=== PATIENT | female | born 1995 | race Caucasian/White ===

== ENCOUNTER 2016-07-07 07:08 | Emergency (ER) | payer BC, OTHER ==
[~2016-07-07] VITALS: Ht 180.3 cm; Wt 99.8 kg
[2016-07-07 07:12] VITALS: BP 139/80
--- NOTE | 2016-07-07 07:29 | PHYS DOC ---
Adult General Chief Complaint Chief Complaint: COUGH HPI HPI Patient is a 20 year old female with no significant medical history who presents with a dry cough for the last 1 month. Patient states she also had a fever yesterday. She states she is an occasional smoker. Review of Systems Review of Systems Constitutional: fever Eyes: Denies change in visual acuity, redness, or eye pain [] HENT: Denies nasal congestion or sore throat [] Respiratory: cough Cardiovascular: No additional information not addressed in HPI [] GI: Denies abdominal pain, nausea, vomiting, bloody stools or diarrhea [] : Denies dysuria or hematuria [] Musculoskeletal: Denies back pain or joint pain [] Integument: Denies rash or skin lesions [] Neurologic: Denies headache, focal weakness or sensory changes [] Endocrine: Denies polyuria or polydipsia [] Current Medications Current Medications Current Medications Medications (Trade) Dose Ordered Sig/Letty Start Time Stop Time Status Last Admin Dose Admin Albuterol/ Ipratropium (Duoneb) 3 ml 1X ONCE 07/07/16 07:30 07/07/16 07:31 DC 07/07/16 07:35 3 ML Benzonatate (Tessalon Perle) 200 mg 1X ONCE 07/07/16 07:30 07/07/16 07:31 DC 07/07/16 07:46 200 MG Prednisone (Prednisone) 60 mg 1X ONCE 07/07/16 07:30 07/07/16 07:31 DC 07/07/16 07:46 60 MG Allergies Allergies Allergies Coded Allergies Type Severity Reaction Last Updated Verified Penicillins Allergy Intermediate hives 07/07/16 Yes Physical Exam Physical Exam Constitutional: Well developed, well nourished, no acute distress, non-toxic appearance. [] HENT: Normocephalic, atraumatic, bilateral external ears normal, oropharynx moist, no oral exudates, nose normal. [] Eyes: PERRLA, EOMI, conjunctiva normal, no discharge. [] Neck: Normal range of motion, no tenderness, supple, no stridor. [] Cardiovascular:Heart rate regular rhythm, no murmur [] Lungs & Thorax: Bilateral breath sounds clear to auscultation [] Abdomen: Bowel sounds normal, soft, no tenderness, no masses, no pulsatile masses. [] Skin: Warm, dry, no erythema, no rash. [] Back: No tenderness, no CVA tenderness. [] Extremities: No tenderness, no cyanosis, no clubbing, ROM intact, no edema. [] Neurologic: Alert and oriented X 3, normal motor function, normal sensory function, no focal deficits noted. [] Psychologic: Affect normal, judgement normal, mood normal. [] Current Patient Data Vital Signs Vital Signs Date Time Temp Pulse Resp B/P Pulse Ox O2 Delivery O2 Flow Rate FiO2 07/07/16 07:35 Room Air 07/07/16 07:12 97.6 68 14 98 97.6 EKG EKG [] Radiology/Procedures Radiology/Procedures [] Course & Med Decision Making Course & Med Decision Making Pertinent Labs and Imaging studies reviewed. (See chart for details) Patient is in the ED with a dry cough for 1 month. Patient does work in the hospital. She was given a DuoNeb treatment, prednisone and Tessalon Perles in the Ed. Chest x-ray interpreted by Dr. Davidson is negative for any acute findings. Patient was treated for bronchitis. She was discharged with doxycycline, prednisone for 4 more days, albuterol breathing treatments, Tessalon Perles, and codeine with promethazine. She is to follow-up with her own PCP in the next 7 days. We did talk about complete smoking cessation. Dragon Disclaimer Dragon Disclaimer This electronic medical record was generated, in whole or in part, using a voice recognition dictation system. Departure Departure Impression: Primary Impression: Acute bronchitis Additional Impression: Smoking addiction Disposition: 01 HOME, SELF-CARE Condition: STABLE Referrals: GUY BUSTILLOS MD (PCP) Follow-up with your own doctor in the next 7-14 days Patient Instructions: Acute Bronchitis Additional Instructions: You were seen for acute bronchitis. Please complete your antibiotics. Take the prescribed medicines as ordered. Follow-up with your own doctor in 1-2 weeks. Come back to the emergency room if symptoms worsen. Consider complete smoking cessation. Scripts Promethazine Hcl/Codeine (Promethazine-Codeine Syrup)118 Ml Syrup5 Ml PO Q4- 6HRS #120 ML Prov:MUTUNGA,MELIDA [employer] 07/07/16 Albuterol Sulfate (Proair Respiclick)90 Mcg Aer.pow.ba1 Puff IH PRN Q6HRS PRN SHORTNESS OF BREATH #1 INHALER Prov:MELIDA ANDRES APRN 07/07/16 Benzonatate (Tessalon Perle)100 Mg Capsule1 Cap PO TID #30 CAP Prov:MELIDA ANDRES APRN 07/07/16 Prednisone 50 Mg Tablet1 Tab PO DAILY #4 TAB Prov:MELIDA ANDRES APRN 07/07/16 Doxycycline Hyclate 100 Mg Tablet1 Tab PO BID #14 TAB Prov:MELIDA ANDRES APRN 07/07/16 Problem Qualifiers Primary Impression: Acute bronchitis Bronchitis organism: unspecified organism Qualified Code: J20.9 - Acute bronchitis, unspecified YOVANNYFUADMELIDA DODGE Jul 07, 2016 07:29
[2016-07-07] MEDS ORDERED: BENZONATATE 100 MG CAPSULE. PO ONE (07:30)
[2016-07-07] MEDS ORDERED: IPRATRPIUM/ALBUTEROL 0.5/2.5MG 3 ML NEBU. NEB ONE (07:30)
[2016-07-07] MEDS ORDERED: PREDNISONE 20 MG TABLET PO ONE (07:30)
[2016-07-07] MEDS ORDERED: PRED50TA PO (08:23)
[2016-07-07] MEDS ORDERED: BENZ100C PO (08:23)
[2016-07-07] MEDS ORDERED: PROAIR RESPICL90 MCG IH (08:23)
[2016-07-07] MEDS ORDERED: PROM118S2 PO (08:23)
[2016-07-07] MEDS ORDERED: DOXY100T PO (08:23)
--- NOTE | 2016-07-07 08:25 | RAD ---
2 view CXR: Clinical indications: Cough for one month which is now productive. Findings: No acute lung infiltrate or pleural effusion or pulmonary edema or lung mass or pneumothorax is seen. The heart size, pulmonary vasculature, mediastinum and both odalys are unremarkable. The osseous structures appear intact. Impression: No acute radiographic abnormality is seen.
== END 2016-07-07 08:34 | disposition home or self-care (01) ==
LOC: ER 07:08
DX: J20.9 Acute bronchitis, unspecified (principal); F17.200 Nicotine dependence, unspecified, uncomplicated; Z88.0 Allergy status to penicillin
CPT/HCPCS: 71020; 94250; 94640; 99284; J7512; J7620

== ENCOUNTER 2016-09-01 21:42 | Emergency (ER) | payer BC, OTHER ==
[~2016-09-01] VITALS: Ht 180.3 cm; Wt 99.8 kg
[~2016-09-01 21:42] MED LIST: BENZ100C PO; DOXY100T PO; PRED50TA PO; PROAIR RESPICL90 MCG IH; PROM118S2 PO
[2016-09-01 22:03] VITALS: BP 137/73
[2016-09-01] MEDS ORDERED: CEPH-264 PO (22:17)
--- NOTE | 2016-09-01 22:17 | PHYS DOC ---
Past Medical History Past Medical History: No Pertinent History Past Surgical History: Tonsillectomy Additional Information: nonsmoker Alcohol Use: Occasionally Drug Use: None Adult General Chief Complaint Chief Complaint: SORE THROAT HPI HPI Patient is a 20 year old female who presents with sore throat starting today. She has had nasal congestion and nonproductive cough. She denies fever, ear pain , shortness of breath, nausea, or vomiting. Her roommate recently had strep throat. The patient does not have a PCP. Review of Systems Review of Systems Constitutional: Denies fever or chills. [] Eyes: Denies change in visual acuity, redness, or eye pain. [] HENT: Denies ear pain. Reports sore throat and nasal congestion. Respiratory: Denies shortness of breath. Reports cough. Cardiovascular: Denies chest pain, palpitations or edema. [] GI: Denies abdominal pain, nausea, vomiting, bloody stools or diarrhea. [] Musculoskeletal: Denies back pain or joint pain. [] Integument: Denies rash or skin lesions. [] Neurologic: Denies headache, focal weakness or sensory changes. [] All systems reviewed and negative unless otherwise stated in the HPI. Allergies Allergies Allergies Coded Allergies Type Severity Reaction Last Updated Verified Penicillins Allergy Intermediate hives 07/07/16 Yes Physical Exam Physical Exam Constitutional: Well developed, well nourished, no acute distress, non-toxic appearance. [] HENT: Normocephalic, atraumatic, bilateral external ears normal, oropharynx moist, no oral exudates, nose normal. Bilateral TMs without erythema or bulging. There is posterior pharyngeal erythema with bilateral tonsillar edema. There is no peritonsillar abscess or uvular deviation. Bilateral nasal turbinates are swollen and erythematous. Eyes: PERRLA, EOMI, conjunctiva normal, no discharge. [] Neck: Normal range of motion, no tenderness, supple, no stridor. [] Cardiovascular: Heart rate regular rhythm, no murmur [] Lungs & Thorax: Bilateral breath sounds clear to auscultation without wheezes, rales, or rhonchi. Skin: Warm, dry, no erythema, no rash. [] Neurologic: Alert and oriented X 3, normal motor function, normal sensory function, no focal deficits noted. [] Psychologic: Affect normal, judgement normal, mood normal. [] Current Patient Data Vital Signs Vital Signs Date Time Temp Pulse Resp B/P Pulse Ox O2 Delivery O2 Flow Rate FiO2 09/01/16 22:03 98.7 91 18 98 Room Air 98.7 EKG EKG [] Radiology/Procedures Radiology/Procedures [] Course & Med Decision Making Course & Med Decision Making Pertinent Labs and Imaging studies reviewed. (See chart for details) Rapid strep positive Dragon Disclaimer Dragon Disclaimer This electronic medical record was generated, in whole or in part, using a voice recognition dictation system. Departure Departure Impression: Primary Impression: Strep throat Disposition: HOME, SELF-CARE Condition: STABLE Referrals: NO PCP (PCP) Patient Instructions: Strep Throat, [id number] Additional Instructions: Your strep test is positive. Please complete all the prescribed antibiotics, even if you are feeling better. You may take Tylenol or ibuprofen for fever or pain. Use according to package instructions. Please drink lots of water to stay hydrated and get plenty of rest. Return to emergency department if you have any new or concerning symptoms. Scripts Cephalexin (Keflex)500 Mg Capsule1 Cap PO BID 10 Days Prov:OLMAN WILKINS 09/01/16 OLMAN WILKINS Sep 01, 2016 22:17
[2016-09-02 07:15] LABS: NEGATIVE OBC STREP NEG; POSITIVE OBC STREP POS
== END 2016-09-01 22:42 | disposition home or self-care (01) ==
LOC: ER 21:42
DX: J02.0 Streptococcal pharyngitis (principal); Z90.89 Acquired absence of other organs; Z88.0 Allergy status to penicillin
CPT/HCPCS: 87880; 99283

== ENCOUNTER 2017-04-10 00:36 | Emergency (ER) | payer BC, OTHER ==
[~2017-04-10] VITALS: Ht 180.3 cm; Wt 113.4 kg
[~2017-04-10 00:36] MED LIST changes: +CEPH-264 PO
--- NOTE | 2017-04-10 00:50 | PHYS DOC ---
Past Medical History Past Medical History: No Pertinent History Past Surgical History: Tonsillectomy Smoking: Less than 1pk/day Alcohol Use: Occasionally Drug Use: None Adult General Chief Complaint Chief Complaint: FLU SYMPTOM HPI HPI Patient is a 21 year old E male presents to the emergency department with a one -day history of fever, general malaise. Patient states she took a flu immunization approximately one hour before onset of her symptoms. She has no complaints of headache, no blurred vision. She has mild nausea without vomiting. No diarrhea. No abdominal pain. Review of Systems Review of Systems Constitutional: Fever, chills Eyes: Denies change in visual acuity, redness, or eye pain [] HENT: Denies nasal congestion or sore throat [] Respiratory: Denies cough or shortness of breath [] Cardiovascular: No additional information not addressed in HPI [] GI: Denies abdominal pain, nausea, vomiting, bloody stools or diarrhea [] : Denies dysuria or hematuria [] Musculoskeletal: Myalgia Integument: Denies rash or skin lesions [] Neurologic: Denies headache, focal weakness or sensory changes [] Endocrine: Denies polyuria or polydipsia [] Current Medications Current Medications Current Medications Medications (Trade) Dose Ordered Sig/Letty Start Time Stop Time Status Last Admin Dose Admin Ibuprofen (Motrin) 800 mg 1X ONCE 04/10/17 01:00 04/10/17 01:01 DC Allergies Allergies Allergies Coded Allergies Type Severity Reaction Last Updated Verified Penicillins Allergy Intermediate hives 07/07/16 Yes Physical Exam Physical Exam Constitutional: Well developed, well nourished, no acute distress, non-toxic appearance. [] HENT: Normocephalic, atraumatic, bilateral external ears normal, oropharynx moist, no oral exudates, nose normal. [] Neck: Normal range of motion, no midline or paracervical tenderness, supple.lymphadenopathy, no stridor. [] Cardiovascular:Heart rate regular rhythm, no murmur [] Lungs & Thorax: Bilateral breath sounds clear to auscultation [] Skin: Warm, dry, no erythema, no rash. [] Back: No tenderness, no CVA tenderness. [] Extremities: No tenderness, no cyanosis, no clubbing, ROM intact, no edema. [] Neurologic: Alert and oriented X 3, normal motor function, normal sensory function, no focal deficits noted. [] Psychologic: Affect normal, judgement normal, mood normal. [] Current Patient Data Vital Signs Vital Signs Date Time Temp Pulse Resp B/P (MAP) Pulse Ox O2 Delivery O2 Flow Rate FiO2 04/10/17 00:55 98.5 99 18 97 Room Air 98.5 Lab Values Laboratory Tests Test 04/10/17 00:30 Influenza Type A Antigen Negative (NEGATIVE) Influenza Type B Antigen Negative (NEGATIVE) EKG EKG [] Radiology/Procedures Radiology/Procedures [] Course & Med Decision Making Course & Med Decision Making Pertinent Labs and Imaging studies reviewed. (See chart for details) [] Dragon Disclaimer Dragon Disclaimer This electronic medical record was generated, in whole or in part, using a voice recognition dictation system. Departure Departure Impression: Primary Impression: Viral syndrome Disposition: 01 HOME, SELF-CARE Condition: STABLE Referrals: NO PCP (PCP) [facility] Patient Instructions: Viral Syndrome Additional Instructions: [id number] medications for symptom management. Please use as directed. Return to the emergency department new symptoms or concerns or worsening of current condition. DEWAYNE HERNANDEZ ANIMAL KILLER Apr 10, 2017 00:50
[2017-04-10 00:55] VITALS: BP 161/77
[2017-04-10] MEDS ORDERED: IBUPROFEN 800 MG TABLET. PO ONE (01:00)
[2017-04-10 01:08] LABS: OBC FLU VALID
== END 2017-04-10 01:12 | disposition home or self-care (01) ==
LOC: ER 00:36
DX: B34.9 Viral infection, unspecified (principal); F17.200 Nicotine dependence, unspecified, uncomplicated; Z88.0 Allergy status to penicillin
CPT/HCPCS: 87804; 99284